=== PATIENT | female | born 1985 | race Caucasian/White ===

== ENCOUNTER → 2024-03-28 09:44 | Outpatient (REF) | payer OTHER, SELFPAY ==
[2024-03-29 15:51] LABS: Hepatitis B Surface Antibody Negative
== END ==
LOC: OHS 09:44
PROVIDERS: ATTENDING PHYSICIAN Nurse Practitioner Family
DX: Z23 Encounter for immunization (principal)
CPT/HCPCS: 36415; 86480; 86706

== ENCOUNTER → 2024-07-16 09:28 | Outpatient (REF) | payer OTHER, SELFPAY ==
[2024-07-16 21:27] LABS: Hepatitis B Surface Antibody Positive
== END ==
LOC: REG 09:28
PROVIDERS: ATTENDING PHYSICIAN Nurse Practitioner Family; FAMILY PHYSICIAN Nurse Practitioner Primary Care
DX: Z23 Encounter for immunization (principal)
CPT/HCPCS: 36415; 86706